=== PATIENT | female | born 1990 ===

== ENCOUNTER → 2017-09-02 | Emergency (ER) | payer OTHER ==
[~2017-09-02] VITALS: Ht 167.6 cm; Wt 111.1 kg
[~2017-09-02] MED LIST: PRENATABS FA T1 EACH
== END | disposition home or self-care (01) ==
LOC: ER 12:28
DX: O21.0 Mild hyperemesis gravidarum (principal); Z34.01 Encounter for supervision of normal first pregnancy, first trimester

== ENCOUNTER 2018-02-02 15:00 | Inpatient (IN) | payer OTHER ==
[~2018-02-02] VITALS: Ht 167.6 cm; Wt 114.8 kg
== END 2018-02-18 13:35 | DRG 775 ==
LOC: OB/GYN 02-16 14:31 → LDR 02-16 14:31 → OB/GYN 02-16 19:29 → LDR 03-01 15:00
PROC: 10E0XZZ Delivery of Products of Conception, External Approach (ICD-10-PCS; principal; 2018-02-16)
PROC: 0KQM0ZZ Repair Perineum Muscle, Open Approach (ICD-10-PCS; 2018-02-16)
PROC: 3E033VJ Introduction of Other Hormone into Peripheral Vein, Percutaneous Approach (ICD-10-PCS; 2018-02-16)
PROC: 4A1HXCZ Monitoring of Products of Conception, Cardiac Rate, External Approach (ICD-10-PCS; 2018-02-16)
DX: O70.1 Second degree perineal laceration during delivery (principal); Z37.0 Single live birth; Z3A.38 38 weeks gestation of pregnancy

== ENCOUNTER 2018-02-09 13:44 | Outpatient (CLI) | payer OTHER | END 2018-02-09 15:25 | disposition home or self-care (01) | LOC: NST 13:44 | DX: Z34.83 Encounter for supervision of other normal pregnancy, third trimester (principal) ==